=== PATIENT | male | born 1990 | race Caucasian/White ===

== ENCOUNTER 2018-10-03 22:42 | Emergency (ER) | payer MEDICAID ==
[~2018-10-03] VITALS: Ht 182.9 cm; Wt 129.3 kg
[2018-10-03 22:50] VITALS: BP_SYST 133
--- NOTE | 2018-10-03 23:15 | NUR ---
Patient to ER H1 bed. Side rails up.
--- NOTE | 2018-10-03 23:18 | NUR ---
Pt C/O RT and LT hand pain. Rt hand pain x 2 weeks, pt states he "feels a popping sound when moving his thumb". Lt hand has a skin tear while using a drill. Pt states pain is 5/10 and denies any other symptoms at this time.
--- NOTE | 2018-10-03 23:20 | NUR ---
ER Dr. Lamar at bedside examining patient.
[2018-10-03] MEDS ORDERED: DIPH-TET-PERTUS Vaccine 0.5 ML VIAL (ADACEL) IM ONE (23:30)
[2018-10-03 23:53] VITALS: BP_SYST 133
--- NOTE | 2018-10-03 23:56 | NUR ---
Patient given written and verbal discharge instructions and verbalizes understanding. ER MD discussed with patient the results and treatment provided. Patient in stable condition. ID arm band removed. Rx of Naprosyn given. Patient educated on pain management and to follow up with PMD. Pain Scale 0/10. Opportunity for questions provided and answered. Medication side effect fact sheet provided.
== END 2018-10-03 23:53 | disposition home or self-care (01) ==
LOC: SED 22:42
DX: S61.432A Puncture wound without foreign body of left hand, initial encounter (principal); M19.041 Primary osteoarthritis, right hand; W31.1XXA Contact with metalworking machines, initial encounter; Y93.89 Activity, other specified; Y92.89 Other specified places as the place of occurrence of the external cause; Y99.8 Other external cause status
CPT/HCPCS: 90715; 99283

== ENCOUNTER 2022-11-17 00:37 | Emergency (ER) | payer MEDICAID ==
[~2022-11-17] VITALS: Ht 182.9 cm; Wt 120.2 kg
[~2022-11-17 00:37] MED LIST: IBUP-1971 PO; PSEU30TA36 PO
[2022-11-17 00:51] VITALS: BP_SYST 138
--- NOTE | 2022-11-17 00:51 | NUR ---
Triaged and placed patient in ER bed 7 for evaluation. Report given to Julianna LUA for continuity of care. VSS, no acute respiratory distress noted at this time. Instructed to notify ED staff for any changes in condition or worsening of symptoms. Patient verbalized understanding.
--- NOTE | 2022-11-17 00:55 | NUR ---
Pt is noted ion bed alert, responsive as he came from [facility] C/O Swollen on his Lips . Hives all over his body that started Yesterday Morning Pt care continue as awaits MD orders.
[2022-11-17] MEDS ORDERED: DIPHENHYDRAMINE INJ 50 MG/ML VIAL IM ONE (01:15)
[2022-11-17] MEDS ORDERED: methylPREDNISolone SOD SUCC/PF 62.5 MG/ML VIAL IM ONE (01:15)
[2022-11-17] MEDS ORDERED: BEN50 PO (01:59)
[2022-11-17] MEDS ORDERED: MED4 PO (01:59)
[2022-11-17 02:10] VITALS: BP_SYST 118
--- NOTE | 2022-11-17 02:10 | NUR ---
Pt is noted off the unit as he is been discharge to home with no S/S off distress.
== END 2022-11-17 02:05 | disposition home or self-care (01) ==
LOC: SED 00:37
DX: L50.9 Urticaria, unspecified (principal); Z79.899 Other long term (current) drug therapy
CPT/HCPCS: 99284; 96372; J1200; J2930

== ENCOUNTER 2023-03-30 19:55 | Emergency (ER) | payer MEDICAID ==
[~2023-03-30] VITALS: Ht 182.9 cm; Wt 115.7 kg
[~2023-03-30 19:55] MED LIST changes: +BEN50 PO; +MED4 PO
[2023-03-30 19:58] VITALS: BP_SYST 141; PULSE 88; RESP 24; TEMP 98.5; O2SAT 99
[2023-03-30] MEDS ORDERED: IBUP-1969 PO (22:07)
[2023-03-30] MEDS ORDERED: ACET-2634 PO (22:07)
[2023-03-30] MEDS ORDERED: LIDO700A30 TP (22:07)
[2023-03-30] MEDS ORDERED: KETOROLAC TROMETHAMINE 60 MG/2 ML VIAL IM ONE (22:15)
[2023-03-30 22:28] VITALS: BP_SYST 141; PULSE 88; RESP 24; TEMP 98.5; O2SAT 99
== END 2023-03-30 22:28 | disposition home or self-care (01) ==
LOC: SED 19:55
DX: S20.212A Contusion of left front wall of thorax, initial encounter (principal); Z79.899 Other long term (current) drug therapy; W19.XXXA Unspecified fall, initial encounter; Y93.89 Activity, other specified; Y92.89 Other specified places as the place of occurrence of the external cause; Y99.8 Other external cause status
CPT/HCPCS: 99283; 71045; 93005; 96372; J1885

== ENCOUNTER 2023-08-06 06:12 | Emergency (ER) | payer BC, MEDICAID ==
[~2023-08-06] VITALS: Ht 182.9 cm; Wt 115.7 kg
[~2023-08-06 06:12] MED LIST changes: +ACET-2634 PO; +IBUP-1969 PO; +LIDO700A30 TP
[2023-08-06] MEDS ORDERED: ASPIRIN 325 MG TABLET PO ONE (06:30)
[2023-08-06 06:31] VITALS: BP_SYST 128; PULSE 66; RESP 18; TEMP 97.4; O2SAT 100
[2023-08-06 07:15] LABS: BASOPHILS % (AUTO) 0.3 % (0.0-2.0); EOSINOPHILS # (AUTO) 0.2 K/uL (0.0-0.4); EOSINOPHILS % (AUTO) 2.5 % (0.0-4.0); HEMATOCRIT 43.6 % (36-54); HEMOGLOBIN 14.5 g/dL (14.0-18.0); LYMPHOCYTES # (AUTO) 2.9 K/uL (1.0-5.5); LYMPHOCYTES % (AUTO) 47.8 % (20.5-51.5); MEAN CORPUSCULAR HEMOGLOBIN 27 pg (27-31); MEAN CORPUSCULAR HGB CONC 33 % (32-36); MEAN CORPUSCULAR VOLUME 80 fL (79.0-98.0); MONOCYTES # (AUTO) 0.5 K/uL (0.0-1.0); MONOCYTES % (AUTO) 8.3 % (1.7-9.3); NEUTROPHILS # (AUTO) 2.5 K/uL (1.8-7.7); NEUTROPHILS % (AUTO) 41.1 % (40.0-70.0); PLATELET COUNT (AUTO) 254 K/uL (130-430); RED BLOOD CELL COUNT(AUTO) 5.47 MIL/uL (4.2-6.2); RED CELL DISTRIBUTION WIDTH 14.1 % (9.0-15.0); WHITE BLOOD COUNT (AUTO) 6.1 K/uL (4.8-10.8)
[2023-08-06 07:28] LABS: ANION GAP 6 (5-15); CALCIUM 9.3 mg/dL (8.4-11.0); CARBON DIOXIDE 29 mmol/L (23-29); CHLORIDE 103 mmol/L (98-107); CREATININE 1.16 mg/dL (0.55-1.30); GFR AFRICAN AMERICAN 93 mL/min (>90); GLUCOSE 111 mg/dL (74-106); POTASSIUM 4.4 mmol/L (3.5-5.1); SODIUM SERUM 138 mmol/L (136-145); UREA NITROGEN, BLOOD 10 mg/dL (8-21)
[2023-08-06 07:35] LABS: PROTHROMBIN TIME 10.1 SECS (9.5-12.5)
[2023-08-06 07:37] LABS: GFR NON AFRICAN-AMERICAN 77 mL/min (>90)
[2023-08-06 09:08] VITALS: O2SAT 96
== END 2023-08-06 10:11 | disposition left against medical advice (07) ==
LOC: SED 06:12
DX: R07.89 Other chest pain (principal); F17.200 Nicotine dependence, unspecified, uncomplicated; Z79.899 Other long term (current) drug therapy
CPT/HCPCS: 36415; 80048; 84484; 85025; 85610-TC; 85730-TC; 93005; 99284